=== PATIENT | male | born 1980 | race Caucasian/White ===

== ENCOUNTER 2016-10-22 06:55 | Emergency (ER) | payer MEDICAID, OTHER ==
[~2016-10-22] VITALS: Ht 175.3 cm; Wt 61.2 kg
--- NOTE | 2016-10-22 06:55 | NUR ---
PT AMY SALDANA, PREBOOK. TAKEN TO OF
[2016-10-22 06:56] VITALS: BP 106/66
--- NOTE | 2016-10-22 07:02 | NUR ---
Dr. Rocha evaluating patient
--- NOTE | 2016-10-22 07:09 | NUR ---
PT MOVED TO ER BED 5
[2016-10-22] MEDS ORDERED: DIPHENOXYLATE /ATROPINE 2.5 MG TAB PO ONE (07:10)
[2016-10-22] MEDS ORDERED: ONDANSETRON 4 MG ODT PO ONE (07:10)
[2016-10-22] MEDS ORDERED: LORazepam 2 MG/ML VIAL IM ONE (07:10)
[2016-10-22] MEDS ORDERED: cloNIDine 0.1 MG TAB PO ONE (07:10)
--- NOTE | 2016-10-22 07:30 | NUR ---
PATIENT PRESENTS TO ED WITH HEROIN WITHDRAWAL, LAST USE 2 DAYS AGO . PT STATES . C/O N/V/D; SKIN IS MILD PALE/WARM/MILD DIAPHORETIC; AAOX4 WITH EVEN AND STEADY GAIT; LUNGS CLEAR BL; HR EVEN AND REGULAR; PT DENIES ANY FEVER, CP, SOB, OR COUGH AT THIS TIME; PATIENT STATES PAIN OF 8/10 AT THIS TIME; VSS; PATIENT POSITIONED FOR COMFORT; HOB ELEVATED; BEDRAILS UP X2; BED DOWN. ER MD MADE AWARE OF PT STATUS.
--- NOTE | 2016-10-22 08:40 | NUR ---
NO REPEATED EMESIS OR DRY HEAVING NOTED---PT REMAINS RESTING WITH OU CLOSED, NO S/S RESP DISTRESS, NO GRIMACE NO MOANING CONTINUES TO WAIT FOR DISPO----PD REMAINS AT BEDSIDE
[2016-10-22 08:47] VITALS: BP 124/90
--- NOTE | 2016-10-22 08:47 | NUR ---
Patient discharged with v/s stable. Written and verbal after care instructions given and explained. Patient alert, oriented and verbalized understanding of instructions. Ambulatory with OFFICER in custody. All questions addressed prior to discharge. ID band removed. Patient advised to follow up with PMD. Rx of ATIVAN, LOMOTIL, ZOFRAN AND CLINIDINE given. Patient educated on indication of medication including possible reaction and side effects. Opportunity to ask questions provided and answered.
== END 2016-10-22 08:47 | disposition home or self-care (01) ==
LOC: MED 06:55
DX: Z02.89 Encounter for other administrative examinations (principal); F11.23 Opioid dependence with withdrawal; R11.2 Nausea with vomiting, unspecified; R10.9 Unspecified abdominal pain; M54.9 Dorsalgia, unspecified
CPT/HCPCS: 96372; 99284; J2060; S0119